=== PATIENT | female | born 1985 | race Caucasian/White ===

== ENCOUNTER 2017-07-09 21:15 | Emergency (ER) | payer MEDICAID ==
[~2017-07-09] VITALS: Ht 167.6 cm; Wt 89.3 kg
[2017-07-09] MEDS ORDERED: LIDOcaine 1% 30ml preserv. free vial IJ ONE (22:05)
[2017-07-09] MEDS ORDERED: HYDROcodone/acetaminophen 10/325mg tab PO ONE (22:05)
[2017-07-09 22:27] VITALS: BP 167/79
== END 2017-07-09 22:28 | disposition home or self-care (01) ==
LOC: ER 21:16
DX: K08.89 Other specified disorders of teeth and supporting structures (principal); Z90.49 Acquired absence of other specified parts of digestive tract
CPT/HCPCS: 64400; 99284; J3490; 64450

== ENCOUNTER 2017-07-10 02:52 | Emergency (ER) | payer MEDICAID ==
[~2017-07-10] VITALS: Ht 167.6 cm; Wt 86.8 kg
[2017-07-10] MEDS ORDERED: BUPIVAcaine/PF 2.5 mg/ml (0.25%) 30ml vial IJ ONE (04:05)
[2017-07-10] MEDS ORDERED: LIDOcaine 1.5% w/epinephrine 1:200,000 5ml ampul IJ ONE (04:05)
[2017-07-10] MEDS ORDERED: oxyCODONE/APAP 10/325mg tablet PO ONE (04:15)
[2017-07-10 05:39] VITALS: BP 160/98
== END 2017-07-10 05:40 | disposition home or self-care (01) ==
LOC: ER 02:53
DX: K04.7 Periapical abscess without sinus (principal); K02.9 Dental caries, unspecified; Z90.49 Acquired absence of other specified parts of digestive tract
CPT/HCPCS: 64400; 99284; J3490

== ENCOUNTER 2017-08-04 12:44 | Emergency (ER) | payer MEDICAID ==
[~2017-08-04] VITALS: Ht 167.6 cm; Wt 90.5 kg
[2017-08-04] MEDS ORDERED: TRAM50TA2 PO (12:49)
[2017-08-04] MEDS ORDERED: IBUP-1984 PO (12:49)
[2017-08-04] MEDS ORDERED: PENI250T2 PO (12:49)
[2017-08-04 12:53] VITALS: BP 120/65
== END 2017-08-04 12:54 | disposition home or self-care (01) ==
LOC: ER 12:44
DX: K08.89 Other specified disorders of teeth and supporting structures (principal); Z90.49 Acquired absence of other specified parts of digestive tract
CPT/HCPCS: 99283

== ENCOUNTER 2018-06-05 16:45 | Emergency (ER) | payer MEDICAID ==
[~2018-06-05] VITALS: Ht 167.6 cm; Wt 83.0 kg
[2018-06-05 16:59] VITALS: BP 126/96
--- NOTE | 2018-06-05 19:03 | NUR ---
No response from lobby after 3 attempts to room. Call to number on file, recieved message that this number is an error. DR. Prince informed
== END 2018-06-05 19:06 | disposition left against medical advice (07) ==
LOC: ER 16:46
DX: R06.02 Shortness of breath (principal); Z53.21 Procedure and treatment not carried out due to patient leaving prior to being seen by health care provider

== ENCOUNTER 2018-09-08 09:43 | Emergency (ER) | payer MEDICAID ==
[~2018-09-08] VITALS: Ht 165.1 cm; Wt 80.0 kg
[2018-09-08] MEDS ORDERED: metroNIDAZOLE-Flagyl 500mg/NS 100 ML IV STA (10:06)
[2018-09-08] MEDS ORDERED: clindamycin-Cleocin 900mg/D5W 50 ML IV ONE (10:10)
[2018-09-08] MEDS ORDERED: dexamethasone sod phosphate 10mg/ml inj IV STA (10:23)
[2018-09-08] MEDS ORDERED: ibuprofen tablet 400 MG TABLET PO ONE (10:55)
[2018-09-08] MEDS ORDERED: acetaminophen 325mg tablet PO ONE (10:55)
[2018-09-08 11:32] VITALS: BP 100/75
[2018-09-08 11:43] LABS: HEMATOCRIT 35.2 % (35.0-45.0); HEMOGLOBIN 10.6 g/dl (12.0-16.0); MEAN CORPUSCULAR HEMOGLOBIN 21.2 PG (27.0-31.0); MEAN CORPUSCULAR HGB CONC 30.1 g/dL (33.0-36.5); MEAN CORPUSCULAR VOLUME 70.3 FL (78-98); MEAN PLATELET VOLUME 8.4 FL (7.4-10.4); PLATELET COUNT 354 X10'3 (140-440); RED BLOOD COUNT 5.01 X10'6 (4.20-5.60); RED CELL DISTRIBUTION WIDTH 29.5 % (11.5-14.5); WHITE BLOOD COUNT 11.5 X10'3 (4.5-11.0)
[2018-09-08 11:58] LABS: ALANINE AMINOTRANSFERASE 55 U/L (12-78); ALBUMIN 3.5 G/DL (3.4-5.0); ALBUMIN/GLOBULIN RATIO 0.8 (1.1-1.5); ALKALINE PHOSPHATASE 140 IU/L (46-116); ANION GAP 10 (8-16); ASPARTATE AMINO TRANSFERASE 20 U/L (10-37); BILIRUBIN,TOTAL 0.2 MG/DL (0.1-1.0); BLOOD UREA NITROGEN 14 MG/DL (7-18); BUN/CREATININE RATIO 10.9 (6.6-38.0); CALCIUM 9.4 MG/DL (8.5-10.1); CHLORIDE 105 MMOL/L (99-107); CREATININE 1.29 MG/DL (0.40-0.90); GLUCOSE 97 MG/DL (70-104); POTASSIUM 3.8 MMOL/L (3.5-5.1); SODIUM 136 MMOL/L (135-145); TOTAL CARBON DIOXIDE 20.9 MMOL/L (24-32); TOTAL PROTEIN 7.8 G/DL (6.4-8.2); eGFR 47 ML/MIN
[2018-09-08 12:04] LABS: HYPOCHROMASIA 2+; PLATELET ESTIMATE NORMAL; SCHISTOCYTES FEW; TOTAL CELLS COUNTED 100
[2018-09-08 12:05] LABS: ANISOCYTOSIS 3+; MICROCYTOSIS 1+; POLYCHROMASIA FEW
[2018-09-08] MEDS ORDERED: iohexol 300mg/ml 100ml inj. ONE (12:13)
[2018-09-08] MEDS ORDERED: METR500T PO (13:12)
[2018-09-08] MEDS ORDERED: METH4TAB81 PO (13:12)
[2018-09-08] MEDS ORDERED: ONDA4TAB6 PO (13:12)
[2018-09-08] MEDS ORDERED: HYDR-4353 PO (13:12)
== END 2018-09-08 13:28 | disposition home or self-care (01) ==
LOC: ER 09:44
DX: S02.5XXA Fracture of tooth (traumatic), initial encounter for closed fracture (principal); K04.7 Periapical abscess without sinus; L03.211 Cellulitis of face; R59.0 Localized enlarged lymph nodes; Z90.49 Acquired absence of other specified parts of digestive tract; Z79.899 Other long term (current) drug therapy; X58.XXXA Exposure to other specified factors, initial encounter; Y93.89 Activity, other specified; Y92.89 Other specified places as the place of occurrence of the external cause; Y99.8 Other external cause status
CPT/HCPCS: 36415; 70487; 80053; 83605; 84145; 85025; 87040; 96365; 96366; 96368; 96375; 99284; J1100; J3490; Q9967

== ENCOUNTER 2021-07-02 15:44 | Emergency (ER) | payer MEDICAID ==
[~2021-07-02] VITALS: Ht 167.6 cm; Wt 104.5 kg
[~2021-07-02 15:44] MED LIST: METH4TAB81 PO; ONDA4TAB6 PO
[2021-07-02 16:24] LABS: BASOPHILS # (AUTO) 0.1 X10'3 (0-0.2); LYMPHOCYTES # (AUTO) 1.8 X10'3 (1.1-4.8); LYMPHOCYTES % (AUTO) 15.9 % (21-51); MEAN CORPUSCULAR HEMOGLOBIN 26.7 PG (27.0-31.0); MONOCYTES # (AUTO) 0.5 X10'3 (0-0.9)
[2021-07-02 16:25] LABS: BASOPHILS % (AUTO) 0.9 % (0-1); EOSINOPHILS % (AUTO) 0.4 % (0-6); HEMATOCRIT 43.2 % (35.0-45.0); HEMOGLOBIN 14.3 g/dl (12.0-16.0); MEAN CORPUSCULAR HGB CONC 33.1 g/dL (33.0-36.5); MEAN CORPUSCULAR VOLUME 80.9 FL (78-98); MEAN PLATELET VOLUME 6.6 FL (7.4-10.4); MONOCYTES % (AUTO) 4.4 % (2-12); NEUTROPHILS # (AUTO) 8.8 X10'3 (1.8-7.7); NEUTROPHILS % (AUTO) 78.4 % (42-75); PLATELET COUNT 403 X10'3 (140-440); RED BLOOD COUNT 5.34 X10'6 (4.20-5.60); RED CELL DISTRIBUTION WIDTH 14.5 % (11.5-14.5); WHITE BLOOD COUNT 11.3 X10'3 (4.5-11.0)
[2021-07-02 16:43] LABS: ALANINE AMINOTRANSFERASE 57 U/L (12-78); ALBUMIN 3.9 G/DL (3.4-5.0); ALBUMIN/GLOBULIN RATIO 0.7 (1.1-1.5); ALKALINE PHOSPHATASE 173 IU/L (46-116); ANION GAP 10 (8-16); ASPARTATE AMINO TRANSFERASE 36 U/L (10-37); BILIRUBIN,TOTAL 0.6 MG/DL (0.1-1.0); BLOOD UREA NITROGEN 15 MG/DL (7-18); BUN/CREATININE RATIO 23.1 (6.6-38.0); CALCIUM 9.6 MG/DL (8.5-10.1); CHLORIDE 102 MMOL/L (99-107); CREATININE 0.65 MG/DL (0.40-0.90); GLUCOSE 128 MG/DL (70-104); LIPASE < 50 U/L (73-393); POTASSIUM 3.7 MMOL/L (3.5-5.1); SODIUM 136 MMOL/L (135-145); TOTAL CARBON DIOXIDE 24.3 MMOL/L (24-32); TOTAL PROTEIN 9.2 G/DL (6.4-8.2); eGFR > 90 ML/MIN
--- NOTE | 2021-07-02 19:36 | NUR ---
ASSUMED CARE OF PT. PT ROOMED IN BED 3.
[2021-07-02] MEDS ORDERED: ketorolac trometh. 30mg/ml inj. IV ONE (19:55)
[2021-07-02] MEDS ORDERED: normal saline 1000ML IV soln IVB ONE (19:55)
[2021-07-02] MEDS ORDERED: diphenhydrAMINE 50 mg/ml inj IV ONE (19:55)
[2021-07-02] MEDS ORDERED: metoclopramide 5 mg/ml inj IV ONE (19:55)
--- NOTE | 2021-07-02 21:31 | NUR ---
ULTRASOUND PAGED [phone]
[2021-07-02] MEDS ORDERED: oxyCODONE/APAP 5-325mg tablet PO ONE (21:45)
[2021-07-02] MEDS ORDERED: morphine 4 MG/ML inj SYRINge IV ONE (22:00)
[2021-07-02 23:32] LABS: URINE HCG NEGATIVE (NEG)
[2021-07-02 23:33] LABS: CLARITY,URINE SLIGHTLY CLOUDY (Clear); COLOR,URINE YELLOW (Yellow); GLUCOSE, URINE NEGATIVE (Neg); KETONES,URINE 15 mg/dl (Neg); LEUKOCYTE ESTERASE ,URINE NEGATIVE (Neg); NITRITES, URINE NEGATIVE (Neg); OCCULT BLOOD,URINE MODERATE (Neg); PROTEIN,URINE NEGATIVE (Neg); UROBILINOGEN,URINE 0.2 E.U/dL (0.2-1.0)
[2021-07-02 23:35] LABS: UA COLLECTION TYPE VOIDED
[2021-07-02 23:37] LABS: RBC,URINE 0-2 /HPF (0-2); WBC,URINE 0-4 /HPF (0-4)
[2021-07-02 23:39] LABS: MUCUS STRANDS FEW /LPF (Neg); SQUAMOUS EPITHELIAL CELL,UR FEW /LPF (FEW)
[2021-07-02 23:40] LABS: BACTERIA,URINE 1+ /HPF (Neg)
--- NOTE | 2021-07-03 01:34 | NUR ---
PT REQUESTED PAIN MEDS. DR Parada GAVE VO ORDER FOR 1 MG OF DILAUDID IV. ORDER REPEATED BACK FOR ACCURACY.
[2021-07-03] MEDS ORDERED: HYDROmorphone 1 mg/ml syringe IV ONE (01:35)
--- NOTE | 2021-07-03 03:35 | NUR ---
Gave report to LEANNA Cabrera, at [facility]. Ambulance is here to pick pt up.
[2021-07-03 04:03] VITALS: BP 130/89
== END 2021-07-03 03:35 | disposition short-term general hospital (02) ==
LOC: ER 15:45
DX: R19.04 Left lower quadrant abdominal swelling, mass and lump (principal); Z20.822 Contact with and (suspected) exposure to COVID-19
CPT/HCPCS: 74176; 76856; 80053; 81001; 81025; 83690; 85025; 87635; 93976; 96374; 96375; 99285; C9803; J1170; J1200; J1885; J2270; J2765; J7030; 96361